=== PATIENT | female | born 1990 | race Caucasian/White ===

== ENCOUNTER 2017-08-14 11:55 | Inpatient (IN) | payer BC ==
[2017-08-14] MEDS ORDERED: Methylergonovine 0.2 MG/1 ML Amp IM PRN (13:37)
[2017-08-14] MEDS ORDERED: Sodium Chloride 0.9% 2.5 ML Syringe FLUSH PRN (13:37)
[2017-08-14] MEDS ORDERED: Sodium Chloride 0.9% 10 ML Syringe FLUSH PRN (13:37)
[2017-08-14] MEDS ORDERED: Nalbuphine 10 MG/ML 10 ML MDV IVPUSH PRN (13:37)
[2017-08-14] MEDS ORDERED: Lidocaine 1% 50 ML MDV INJECT PRN (13:37)
[2017-08-14] MEDS ORDERED: Carboprost Tromethamine 250 MCG/1 ML Amp IM PRN (13:37)
[2017-08-14] MEDS ORDERED: Tranexamic Acid 1,000 MG in Sodium Chloride 0.9% 100 ML IV PRN (13:37)
[2017-08-14] MEDS ORDERED: Water For Irrigation,Sterile 1,000 ML Container IRR PRN (13:37)
[2017-08-14] MEDS ORDERED: Misoprostol 200 MCG Tab PO PRN (13:37)
[2017-08-14] MEDS ORDERED: Butorphanol 1 MG/ML SDV IVPUSH PRN (13:37)
[2017-08-14] MEDS ORDERED: Oxytocin/0.9 % Sodium Chloride 30 UNIT/500 ML BAG IV SCH (13:45)
[2017-08-14] MEDS: Lactated Ringers 1,000 ML IV SCH ×3 (14:33→18:41)
[2017-08-14] MEDS ORDERED: Ropivacaine 0.2% 2 MG/ML 20 ML SDV ONE (18:14)
--- NOTE | 2017-08-14 18:41 | PCM.PREANE ---
Preanesthetic Assessment - Procedure Proposed Procedure: labor epidural - Anesthesia/Transfusion/Family Hx Anesthesia History: Prior Anesthesia Without Reaction Family History of Anesthesia Reaction: No Transfusion History: No Prior Transfusion(s) - Review of Systems Other: Reports: None - Physical Assessment Height: 5 ft 3 in Weight: 93.44 kg ASA Class: 1 Mental Status: Alert & Oriented x3 Airway Class: Mallampati = 1 Dentition: Reports: Normal Dentition Thyro-Mental Finger Breadths: 3 Mouth Opening Finger Breadths: 3 ROM/Head Extension: Full - Lab Values: Laboratory Last Values WBC 12.84 K/uL (4.0-11.0) H 08/14/17 14:10 RBC 4.42 M/uL (4.30-5.90) 08/14/17 14:10 Hgb 10.2 g/dL (12.0-16.0) L 08/14/17 14:10 Hct 32.7 % (36.0-46.0) L 08/14/17 14:10 MCV 74.0 fL (80.0-98.0) L 08/14/17 14:10 MCH 23.1 pg (27.0-32.0) L 08/14/17 14:10 MCHC 31.2 g/dL (31.0-37.0) 08/14/17 14:10 RDW Std Deviation 42.2 fl (28.0-62.0) 08/14/17 14:10 RDW Coeff of Jose 16 % (11.0-15.0) H 08/14/17 14:10 Plt Count 233 K/uL (150-400) 08/14/17 14:10 MPV 12.30 fL (7.40-12.00) H 08/14/17 14:10 Nucleated RBC % 0.0 /100WBC 08/14/17 14:10 Nucleated RBCs # 0 K/uL 08/14/17 14:10 Urine Color YELLOW 08/14/17 13:30 Urine Appearance CLEAR 08/14/17 13:30 Urine pH 7.0 (5.0-8.0) 08/14/17 13:30 Ur Specific Dexter <= 1.005 (1.001-1.035) 08/14/17 13:30 Urine Protein TRACE mg/dL (NEGATIVE) 08/14/17 13:30 Urine Glucose (UA) NEGATIVE mg/dL (NEGATIVE) 08/14/17 13:30 Urine Ketones NEGATIVE mg/dL (NEGATIVE) 08/14/17 13:30 Urine Occult Blood NEGATIVE (NEGATIVE) 08/14/17 13:30 Urine Nitrite NEGATIVE (NEGATIVE) 08/14/17 13:30 Urine Bilirubin NEGATIVE (NEGATIVE) 08/14/17 13:30 Urine Urobilinogen 0.2 EU/dL (<2.0) 08/14/17 13:30 Ur Leukocyte Esterase NEGATIVE (NEGATIVE) 08/14/17 13:30 Blood Type A NEGATIVE 08/14/17 14:10 Antibody Screen NEGATIVE 08/14/17 14:10 - Allergies Allergies/Adverse Reactions: Allergies Allergy/AdvReac Type Severity Reaction Status Date / Time No Known Allergies Allergy Verified 12/15/16 14:26 - Blood Blood Available: Yes Product(s) Available: PRBC - Acknowledgements Anesthesia Type Planned: Epidural Pt an Appropriate Candidate for the Planned Anesthesia: Yes Alternatives and Risks of Anesthesia Discussed w Pt/Guardian: Yes Pt/Guardian Understands and Agrees with Anesthesia Plan: Yes PreAnesthesia Questionnaire HEENT History: Reports: 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: Musculoskeletal History: Reports: Other (See Below) Other Musculoskeletal History: fractrue of both arms - Past Surgical History HEENT Surgical History: Reports: Oral Surgery, Other (See Below) Other HEENT Surgeries/Procedures: wisdom tooth extraction Musculoskeletal Surgical History: Reports: None - SUBSTANCE USE Smoking Status *Q: Never Smoker Recreational Drug Use History: No - CURRENT (IN HOUSE) MEDS Current Meds: Current Medications Butorphanol Tartrate (Stadol) 1 mg IVPUSH Q1H PRN PRN Reason: Pain Carboprost Tromethamine (Hemabate Ds) 250 mcg IM ASDIRECTED PRN PRN Reason: Post Hemorrhage Tranexamic Acid 1,000 mg/ (Sodium Chloride) 110 mls @ 660 mls/hr IV ONETIME PRN PRN Reason: Bleeding Lactated Ringer's (Ringers, Lactated) 1,000 mls @ 150 mls/hr IV ASDIRECTED MATT Last Admin: 08/14/17 17:53 Dose: 999 mls/hr Oxytocin/Sodium Chloride (Oxytocin 30 Unit/500 Ml-Ns) 30 unit in 500 mls @ 999 mls/hr IV TITRATE MATT Lidocaine HCl (Xylocaine 1%) 50 ml INJECT .ONCE PRN PRN Reason: Laceration repair Methylergonovine Maleate (Methergine) 0.2 mg IM ASDIRECTED PRN PRN Reason: Post Hemorrhage Misoprostol (Cytotec) 200 mcg PO .ONCE PRN PRN Reason: Post Hemorrhage Nalbuphine HCl (Nubain) 10 mg IVPUSH Q1H PRN PRN Reason: Pain (severe 7-10) Sodium Chloride (Saline Flush) 10 ml FLUSH ASDIRECTED PRN PRN Reason: Keep Vein Open Sodium Chloride (Saline Flush) 2.5 ml FLUSH ASDIRECTED PRN PRN Reason: Keep Vein Open Sterile Water (Sterile Water For Irrigation) 1,000 ml IRR ASDIRECTED PRN PRN Reason: delivery Discontinued Medications Fentanyl/Bupivacaine HCl (Nmlhbfrh-Pltze-Hv 2 Mcg/Ml-0.125%) Confirm Administered Dose 100 mls @ as directed EP .STK-MED ONE Stop: 08/14/17 18:15 Ropivacaine (Naropin 0.2%) Confirm Administered Dose 20 ml .ROUTE .STK-MED ONE Stop: 08/14/17 18:15
[2017-08-14] MEDS ORDERED: ePHEDrine 50 MG/ML SDV ONE (20:00)
[2017-08-15] MEDS ORDERED: Ropivacaine HCl/PF 100 ML ONE (01:01)
[2017-08-15] MEDS ORDERED: Bupivacaine 0.5% 10 ML SDV ONE (01:01)
[2017-08-15] MEDS: Lactated Ringers 1,000 ML IV SCH ×2 (01:30→03:11)
[2017-08-15] MEDS ORDERED: Ondansetron 4 MG/2 ML SDV ONE (03:00)
[2017-08-15] MEDS ORDERED: Ondansetron 4 MG/2 ML SDV IVPUSH ONE (03:02)
[2017-08-15] MEDS ORDERED: Citric Acid/Sodium Citrate Solution 30 ML Cup ONE (05:58)
[2017-08-15] MEDS ORDERED: Citric Acid/Sodium Citrate Solution 30 ML Cup PO ONE (05:58)
[2017-08-15] MEDS ORDERED: Metoclopramide 10 MG/2 ML SDV ONE (05:58)
[2017-08-15] MEDS ORDERED: Metoclopramide 10 MG/2 ML SDV IVPUSH ONE (05:58)
[2017-08-15] MEDS ORDERED: Aluminum Hydroxide/Magnesium Hydroxide/Simethicone Susp 30 ML Cup PO PRN (06:31)
[2017-08-15] MEDS ORDERED: Witch Hazel Medicated Pads 40/Jar TOP PRN (06:31)
[2017-08-15] MEDS ORDERED: oxyCODONE 5 MG Tab PO PRN (06:31)
[2017-08-15] MEDS ORDERED: Bisacodyl 10 MG Supp RECTAL PRN (06:31)
[2017-08-15] MEDS ORDERED: Benzocaine/Menthol 20%-0.5% Spray 78 GM Cannister TOP PRN (06:31)
[2017-08-15] MEDS ORDERED: Ibuprofen 400 MG Tab PO PRN (06:31)
[2017-08-15] MEDS ORDERED: Simethicone 80 MG Tab.Chew PO PRN (06:31)
[2017-08-15] MEDS ORDERED: Lanolin 100% Cream 7 GM Tube TOP PRN (06:31)
[2017-08-15] MEDS ORDERED: Docusate Sodium 100 MG Cap PO PRN (06:31)
[2017-08-15] MEDS ORDERED: Acetaminophen 500 MG Tab PO PRN ×2 (06:31)
--- NOTE | 2017-08-15 08:02 | PCM48HPAN ---
Post Anesthesia Note - EVALUATION WITHIN 48HRS OF ANESTHETIC Vital Signs in Normal Range: Yes Patient Participated in Evaluation: Yes Respiratory Function Stable: Yes Airway Patent: Yes Cardiovascular Function Stable: Yes Hydration Status Stable: Yes Pain Control Satisfactory: Yes Nausea and Vomiting Control Satisfactory: Yes Mental Status Recovered: Yes
[2017-08-15] MEDS: Ibuprofen 800 MG Tab PO PRN ×2 (09:26→22:34)
--- NOTE | 2017-08-15 09:33 | OR ---
SURGEON: Catherine Moreno M.D. DATE OF PROCEDURE: 08/15/2017 Delivery Note PREOPERATIVE DIAGNOSES: 1. A 40 and 2 weeks' intrauterine . 2. Active labor. 3. tachycardia. 4. Maternal exhaustion. POSTOPERATIVE DIAGNOSES: 1. A 40 and 2 weeks' intrauterine . 2. Active labor. 3. tachycardia. 4. Maternal exhaustion. PROCEDURE: Vacuum-assisted vaginal delivery, second-degree midline laceration, repaired. ANESTHESIA: Epidural. ESTIMATED BLOOD LOSS: 300 mL. FINDINGS: Term male, score 8 at 1 minute and 9 at 5 minutes. Weight is pending. Spontaneous delivery, intact placenta, three-vessel cord, light meconium-stained amniotic fluid was noted. DISPOSITION: to nursery, mom in LDRP. PROCEDURE DETAILS: Wendy is a 26-year-old G1, P0 at 41 weeks' gestation who was admitted on the afternoon of 08/14/2017, with regular contractions and found to be 3 to 4 cm dilated, breathing through contractions. She is group B beta strep negative, heart tones in the 140s with variability. The patient was admitted, and routine labs were drawn. Continued to observe. She became increasingly uncomfortable and underwent regional anesthesia from epidural shortly after 08:00 p.m. She had spontaneous rupture of membranes around 6:00 p.m. with light meconium-stained amniotic fluid, and she was found to be 7 cm, 100% effaced, and +1 station. heart tones were now 150s with variability. Initially, blood pressures were elevated, but with observation, they did normalize with pain control. The patient continued to progress throughout the evening hours. Shortly after midnight, there was a shift in the heart tones at 160s to 170s. There was still good variability and accelerations. There was no maternal fever noted. Maternal pulse also was in the 120s, however, received IV fluid bolus. This made minimal impact on the pulse rate for mother or baby. The patient, however, continued to labor, and shortly before 3:00 a.m., was found to be complete 100% effaced, +1 station, began pushing efforts, and pushed for the next approximately 2-1/2 hours. heart tones remained in the 160s to 170s with good variability and acceleration. At this point, the patient was feeling quite exhausted, and was requesting assistance. Upon arrival, the patient was placed in modified dorsal position, discussed with her options for assistance. She is interested in operative vaginal delivery. She does request that the vacuum was preferable over forceps. After discussing with her , risks of vacuum- assisted vaginal delivery was discussed with her including a possibility for cephalhematoma, intracranial bleeding, and increased risk for maternal vaginal trauma. They voiced their understanding. Proper consent had been obtained. The fetus was found to be in GAYE position by Shin at 3700 g. The sagittal suture is palpable. Therefore, after emptying the bladder, the Mityvac was gently placed along the scalp. With the next contraction, insufflated to the green zone and assisted with efforts at pushing, was able to satisfactorily deliver the head to a +4 station. Vacuum was removed. The patient continued pushing with delivery of the remainder of the head followed by anterior shoulder push, remaining body without difficulty. The infant's oropharynx and nares were bulb suctioned and cord clamped x2. was crying and vigorous. was handed off to mother with attending nursing staff after the cord was clamped x2 and cut. Cord arterial, cord venous, and cord blood sampling obtained. Light pressure was applied while the placenta was delivered spontaneously intact. The meconium- stained fluid sent to Pathology for further analysis. Vigorous fundal uterine massage was then applied while 30 units of Pitocin was delivered in 500 mL of IV fluid. Upon inspection of cervix, vaginal sidewalls, and perineum; there was found to be a second-degree midline laceration, which was repaired using 3-0 Vicryl in the usual fashion. There was also first-degree right labial laceration, was repaired using 3-0 Polysorb [id number] suture. Hemostasis appears evident. Sponge and needle count was correct. The patient remains stable. Her pulse was normalized at the 80s. was with her with attending nursing staff at her side. KIMBERLY / JODY /[id number]
[2017-08-16] MEDS: Ibuprofen 800 MG Tab PO PRN ×2 (04:36→11:10)
--- NOTE | 2017-08-16 08:23 | PCM.DCSUM1 ---
Discharge Summary - Hospital Course Free Text/Narrative:: Discharge home with . Follow up in 6 weeks for post or sooner if needed. - Discharge Data Discharge Date: 08/16/17 Discharge Disposition: DC/Tfer W/I Hosp To Swing [facility] Condition: Good - Discharge Diagnosis/Problem(s) (1) Vacuum extraction, delivered, current hospitalization SNOMED Code(s): 854122993 ICD Code: O66.5 - ATTEMPTED APPLICATION OF VACUUM EXTRACTOR AND FORCEPS Status: Acute Priority: High Current Visit: Yes - Patient Instructions Diet: Regular Diet as Tolerated Activity: As Tolerated, No Strenuous Activities, Rest and Relax Today Driving: May Drive Today Showering/Bathing: May Shower Notify Provider of: Fever, Increased Pain, Swelling and Redness, Nausea and/or Vomiting Other/Special Instructions: Discharge home with . Follow up in 6 weeks for post or sooner if needed. - Discharge Plan Home Medications: Home Meds Ondansetron HCl [Zofran] 4 mg PO PRN 08/14/17 [History] Ranitidine HCl [Zantac] 150 mg PO PRN 08/14/17 [History] Referrals: [facility] [Outside] Maureen Traore CNM [Mid-] - 09/07/17 3:00 pm - General Info Date of Service: 08/16/17 Functional Status: Reports: Pain Controlled, Tolerating Diet, Ambulating, Urinating - Review of Systems General: Reports: No Symptoms HEENT: Reports: No Symptoms Pulmonary: Reports: No Symptoms Cardiovascular: Reports: No Symptoms Gastrointestinal: Reports: No Symptoms Genitourinary: Reports: No Symptoms Musculoskeletal: Reports: No Symptoms Skin: Reports: No Symptoms Neurological: Reports: No Symptoms Psychiatric: Reports: No Symptoms - Patient Data Vitals - Most Recent: Last Vital Signs Temp 36.6 C 08/16/17 05:00 Pulse 83 08/16/17 05:00 Resp 16 08/16/17 05:00 BP 144/89 H 08/16/17 05:00 Pulse Ox 98 08/16/17 05:00 Weight - Most Recent: 93.44 kg Lab Results - Last 24 hrs: Laboratory Results - last 24 hr 08/16/17 Range/Units 06:11 Hgb 7.0 L (12.0-16.0) g/dL Hct 22.6 L (36.0-46.0) % Med Orders - Current: Current Medications Acetaminophen (Tylenol Extra Strength) 500 mg PO Q4H PRN PRN Reason: Pain Acetaminophen (Tylenol Extra Strength) 1,000 mg PO Q4H PRN PRN Reason: Pain Al Hydroxide/Mg Hydroxide (Mag-Al Plus) 30 ml PO Q8H PRN PRN Reason: Heartburn Benzocaine/Menthol (Dermoplast Pain Relief 20%-0.5% [place]) 78 gm TOP ASDIRECTED PRN PRN Reason: Perineal Comfort Measure Last Admin: 08/15/17 09:26 Dose: 1 can Bisacodyl (Dulcolax) 10 mg RECTAL .ONCE PRN PRN Reason: Constipation Carboprost Tromethamine (Hemabate Ds) 250 mcg IM ASDIRECTED PRN PRN Reason: Post Hemorrhage Docusate Sodium (Colace) 100 mg PO BID PRN PRN Reason: Constipation Emollient Ointment (Lansinoh Hpa) 0 gm TOP ASDIRECTED PRN PRN Reason: Sore Nipples Tranexamic Acid 1,000 mg/ (Sodium Chloride) 110 mls @ 660 mls/hr IV ONETIME PRN PRN Reason: Bleeding Lactated Ringer's (Ringers, Lactated) 1,000 mls @ 150 mls/hr IV ASDIRECTED [facility] Last Admin: 08/15/17 03:11 Dose: 500 mls/hr Oxytocin/Sodium Chloride (Oxytocin 30 Unit/500 Ml-Ns) 30 unit in 500 mls @ 999 mls/hr IV TITRATE [facility] Last Admin: 08/15/17 06:06 Dose: 999 mls/hr Ibuprofen (Motrin) 400 mg PO Q4H PRN PRN Reason: Pain Ibuprofen (Motrin) 800 mg PO Q6H PRN PRN Reason: Pain Last Admin: 08/16/17 04:36 Dose: 800 mg Methylergonovine Maleate (Methergine) 0.2 mg IM ASDIRECTED PRN PRN Reason: Post Hemorrhage Oxycodone HCl (Oxycodone) 5 mg PO Q2H PRN PRN Reason: Pain Simethicone (Simethicone) 80 mg PO Q4H PRN PRN Reason: Gas Sodium Chloride (Saline Flush) 10 ml FLUSH ASDIRECTED PRN PRN Reason: Keep Vein Open Sodium Chloride (Saline Flush) 2.5 ml FLUSH ASDIRECTED PRN PRN Reason: Keep Vein Open Witch Lupis (Tucks) 1 pad TOP ASDIRECTED PRN PRN Reason: comfort care Discontinued Medications Bupivacaine HCl (Sensorcaine-Mpf 0.5%) Confirm Administered Dose 10 ml .ROUTE .STK-MED ONE Stop: 08/15/17 01:02 Last Admin: 08/15/17 13:06 Dose: Not Given Butorphanol Tartrate (Stadol) 1 mg IVPUSH Q1H PRN PRN Reason: Pain Citric Acid/Sodium Citrate (Bicitra Solution) Confirm Administered Dose 30 ml .ROUTE .[facility]-MED ONE Stop: 08/15/17 05:59 Last Admin: 08/15/17 13:07 Dose: Not Given Citric Acid/Sodium Citrate (Bicitra Solution) 30 ml PO ONETIME ONE Stop: 08/15/17 05:59 Last Admin: 08/15/17 05:58 Dose: 30 ml Ephedrine Sulfate (Ephedrine Sulfate) Confirm Administered Dose 50 mg .ROUTE .ST-MED ONE Stop: 08/14/17 20:01 Last Admin: 08/15/17 13:06 Dose: Not Given Fentanyl/Bupivacaine HCl (Gydkabbk-Yopui-Zi 2 Mcg/Ml-0.125%) Confirm Administered Dose 100 mls @ as directed EP .STK-MED ONE Stop: 08/14/17 18:15 Last Admin: 08/15/17 13:06 Dose: Not Given Ropivacaine (Naropin 0.2%) Confirm Administered Dose 100 mls @ as directed .ROUTE .[facility]-MED ONE Stop: 08/15/17 01:02 Last Admin: 08/15/17 13:06 Dose: Not Given Lidocaine HCl (Xylocaine 1%) 50 ml INJECT .ONCE PRN PRN Reason: Laceration repair Metoclopramide HCl (Reglan) Confirm Administered Dose 10 mg .ROUTE .STK-MED ONE Stop: 08/15/17 05:59 Last Admin: 08/15/17 13:07 Dose: Not Given Metoclopramide HCl (Reglan) 10 mg IVPUSH ONETIME ONE Stop: 08/15/17 05:59 Last Admin: 08/15/17 06:02 Dose: 10 mg Misoprostol (Cytotec) 200 mcg PO .ONCE PRN PRN Reason: Post Hemorrhage Nalbuphine HCl (Nubain) 10 mg IVPUSH Q1H PRN PRN Reason: Pain (severe 7-10) Ondansetron HCl (Zofran) Confirm Administered Dose 4 mg .ROUTE .STK-MED ONE Stop: 08/15/17 03:01 Last Admin: 08/15/17 03:08 Dose: Not Given Ondansetron HCl (Zofran) 4 mg IVPUSH ONETIME ONE Stop: 08/15/17 03:03 Last Admin: 08/15/17 03:02 Dose: 4 mg Ropivacaine (Naropin 0.2%) Confirm Administered Dose 20 ml .ROUTE .STK-MED ONE Stop: 08/14/17 18:15 Last Admin: 08/15/17 13:06 Dose: Not Given Sterile Water (Sterile Water For Irrigation) 1,000 ml IRR ASDIRECTED PRN PRN Reason: delivery Last Admin: 08/15/17 05:55 Dose: 1,000 ml - Exam General: Reports: Alert, Oriented Neck: Reports: Supple Lungs: Reports: Clear to Auscultation, Normal Respiratory Effort Cardiovascular: Reports: Regular Rate, Regular Rhythm, No Murmurs GI/Abdominal Exam: Normal Bowel Sounds, Soft, Non-Tender, No Organomegaly, No Distention, No Abnormal Bruit, No Mass, Pelvis Stable (Female) Exam: Normal External Exam, Normal Bimanual Exam, Vaginal Bleeding Rectal (Female) Exam: Deferred Back Exam: Reports: Normal Inspection, Full Range of Motion Extremities: Normal Inspection, Normal Range of Motion, Non-Tender, No Pedal Edema, Normal Capillary Refill Skin: Reports: Warm, Dry, Intact Wound/Incisions: Reports: Healing Well Neurological: Reports: No New Focal Deficit, Normal Gait, Normal Speech, Normal Tone, Strength Equal Bilateral Psy/Mental Status: Reports: Alert, Normal Affect, Normal Mood
== END 2017-08-16 13:00 | disposition swing bed (61) | DRG 560 ==
LOC: MW.OBCHECK 11:55 → MW.OB 11:59 → MW.OBCHECK 13:37 → MW.OB 13:47 → OBSVTOIN 08-15 06:06
PROVIDERS: ADMIT Obstetrics & Gynecology; ATTEND Obstetrics & Gynecology
PROC: 10D07Z6 Extraction of Products of Conception, Vacuum, Via Natural or Artificial Opening (ICD-10-PCS; principal; 2017-08-15)
PROC: 0HQ9XZZ Repair Perineum Skin, External Approach (ICD-10-PCS; 2017-08-15)
DX: O76 Abnormality in fetal heart rate and rhythm complicating labor and delivery (principal); O75.81 Maternal exhaustion complicating labor and delivery; O70.0 First degree perineal laceration during delivery; O77.0 Labor and delivery complicated by meconium in amniotic fluid; Z3A.40 40 weeks gestation of pregnancy; Z37.0 Single live birth
CPT/HCPCS: 36415; 51702; 59025; 59409; 81003; 82803; 85014; 85018; 85027; 86850; 86900; 86901; A9270-GY; J2405; J2590; J2765; J2795; J7120